=== PATIENT | male | born 1965 | race Caucasian/White ===

== ENCOUNTER 2025-06-18 06:36 | Outpatient (RCR) | payer BC, SELFPAY | END 2025-06-18 23:59 | disposition home or self-care (01) | LOC: ROT 06:36 | PROVIDERS: ATTENDING PHYSICIAN Orthopaedic Surgery Hand Surgery; FAMILY PHYSICIAN Family Medicine | DX: Z47.89 Encounter for other orthopedic aftercare (principal); M72.0 Palmar fascial fibromatosis [Dupuytren]; Z73.6 Limitation of activities due to disability | CPT/HCPCS: 97760 ==